=== PATIENT | male | born 1950 | race Caucasian/White ===

== ENCOUNTER 2017-06-13 10:10 | Emergency (ER) | payer OTHER ==
[2017-06-13 10:26] VITALS: BP 124/76; PULSE 85; TEMP 98.4; BMI 28.1
[2017-06-13] MEDS ORDERED: DIPHTH,PERTUSS(ACELL),TET 0.5 ML DISP.SYRIN IM ONE (11:23)
--- NOTE | 2017-06-13 11:34 | PDOC ---
History of Present Illness - General Chief Complaint: Pain Stated Complaint: LT FINGER INFECTION Time Seen by Provider: 06/13/17 11:19 History Source: Patient - History of Present Illness Timing/Duration: other Severity: moderate Associated Symptoms: denies: fever/chills Past History - Past Medical History Allergies/Adverse Reactions: Allergies Allergy/AdvReac Type Severity Reaction Status Date / Time No Known Allergies Allergy Verified 06/13/17 10:24 Home Medications: Ambulatory Orders Aspirin [ASA -] 81 mg PO DAILY 06/15/13 Enalapril Maleate [Vasotec -] 2.5 mg PO DAILY 06/15/13 Omeprazole Magnesium [Prilosec (OTC)] 20 mg PO DAILY 06/15/13 Rosuvastatin Calcium [Crestor] 10 mg PO HS 06/15/13 Tamsulosin HCl [Flomax] 0.4 mg PO DAILY 06/15/13 Oseltamivir Phosphate [Tamiflu -] 75 mg PO BID #10 capsule 08/11/13 Cephalexin [Keflex] 500 mg PO Q6H #28 capsule 06/13/17 Diabetes: Yes (PRE DIABETIC-DIET CONTROLLED) GI Disorders: Yes (GERD) Hypercholesterolemia: Yes - Immunization History Immunization Up to Date: Yes - Suicide/Smoking/Psychosocial Hx Smoking Status: Yes Smoking History: Former smoker Years of Tobacco Use: 35 Have you smoked in the past 12 months: No Number of Cigarettes Smoked Daily: 20 If you are a former smoker, when did you quit?: 2011 Cigars Per Day: 0 Information on smoking cessation initiated: No Hx Alcohol Use: No Drug/Substance Use Hx: No Substance Use Type: None Review of Systems - Review of Systems Constitutional: No: Chills, Fever *Physical Exam - Vital Signs Last Vital Signs Temp Pulse Resp BP Pulse Ox 98.4 F 85 18 124/76 98 06/13/17 10:24 06/13/17 10:24 06/13/17 10:24 06/13/17 10:24 06/13/17 10:24 - Physical Exam General Appearance: Yes: Appropriately Dressed. No: Apparent Distress HEENT: positive: Normal Voice Neck: positive: Supple Respiratory/Chest: negative: Respiratory Distress Extremity: positive: Other (paronychia to L 3rd digit) Integumentary: positive: Dry, Warm Neurologic: positive: Fully Oriented, Alert, Normal Mood/Affect Procedures - Incision and Drainage I&D Site: Left: Paronychia (L midle fimger paronychia) Anesthesia: 1% Lidocaine Volume(ml): 7 Attempts: 1 (w/ copious purulent discharge) Iodinated Packin/4 in Complications: none Dressing: Yes (bacitracin, xeroform, 2x2 and soft form) Medical Decision Making - Medical Decision Making 06/13/17 11:26 67-year-old male, prediabetic, not on meds, here with pain, swelling and redness to left middle finger 6 days. States he used a needle to puncture site yesterday and was able to express some pus. Works as an automobile accessories installer. Denies any trauma. No fever or chills See exam Paronychia -tetanus -I&D -dc w/ abx -wound check in 2 days *DC/Admit/Observation/Transfer Diagnosis at time of Disposition: Paronychia - Discharge Dispostion Disposition: HOME Condition at time of disposition: Good - Prescriptions Prescriptions: Cephalexin [Keflex] 500 mg PO Q6H #28 capsule - Patient Instructions Printed Discharge Instructions: Paronychia Additional Instructions: Keep wound dry for the next 2 days. Take antibiotics as prescribed. Returning to ED in 2 days for wound check
== END 2017-06-13 11:49 | disposition home or self-care (01) ==
LOC: JERFT 10:10 → SUPCPDRO 10:10 → JERFT 11:49
PROC: 0H9GXZZ Drainage of Left Hand Skin, External Approach (ICD-10-PCS; principal; 2017-06-13)
PROC: 3E0234Z Introduction of Serum, Toxoid and Vaccine into Muscle, Percutaneous Approach (ICD-10-PCS; 2017-06-13)
DX: L03.012 Cellulitis of left finger (principal); R73.03 Prediabetes; K21.9 Gastro-esophageal reflux disease without esophagitis; E78.00 Pure hypercholesterolemia, unspecified; Z87.891 Personal history of nicotine dependence
CPT/HCPCS: 26010; 90471; 90715; 99281-25

== ENCOUNTER 2017-06-15 09:03 | Emergency (ER) | payer OTHER ==
[2017-06-15 09:15] VITALS: BP 132/77; PULSE 64; TEMP 98.1; BMI 28.4
--- NOTE | 2017-06-15 09:59 | PDOC ---
Suture Removal/Wound Check HPI - History of Present Illness Chief Complaint: Revisit,Wound Recheck Stated Complaint: WOUND CHECK Time Seen by Provider: 06/15/17 09:44 History Source: Yes: Patient Exam Limitations: Yes: No Limitations Treated at: [facility] Date of Last ED visit: 06/13/17 - Previous ED Treatment Type of procedure performed on last visit: Yes: I&D of Abscess Tetanus Immunization: Yes: Up to Date Past History - Past Medical History Allergies/Adverse Reactions: Allergies Allergy/AdvReac Type Severity Reaction Status Date / Time No Known Allergies Allergy Verified 06/15/17 09:12 Home Medications: Ambulatory Orders Aspirin [ASA -] 81 mg PO DAILY 06/15/13 Enalapril Maleate [Vasotec -] 2.5 mg PO DAILY 06/15/13 Omeprazole Magnesium [Prilosec (OTC)] 20 mg PO DAILY 06/15/13 Rosuvastatin Calcium [Crestor] 10 mg PO HS 06/15/13 Tamsulosin HCl [Flomax] 0.4 mg PO DAILY 06/15/13 Oseltamivir Phosphate [Tamiflu -] 75 mg PO BID #10 capsule 08/11/13 Cephalexin [Keflex] 500 mg PO Q6H #28 capsule 06/13/17 Diabetes: Yes (PRE DIABETIC-DIET CONTROLLED) GI Disorders: Yes (GERD) Hypercholesterolemia: Yes - Immunization History Immunization Up to Date: Yes - Suicide/Smoking/Psychosocial Hx Smoking Status: Yes Smoking History: Former smoker Years of Tobacco Use: 35 Have you smoked in the past 12 months: No Number of Cigarettes Smoked Daily: 20 If you are a former smoker, when did you quit?: 2011 Cigars Per Day: 0 Information on smoking cessation initiated: No Hx Alcohol Use: No Drug/Substance Use Hx: No Substance Use Type: None Suture Removal/Wound Check PE - Physical Exam Laceration/Wound Check Symptoms: reports: None Comments: 06/15/17 09:58 left middle digit with paronychia that was drained and packed 2 days ago is without swelling or redness, no drainage Procedures - Additional Procedures Progress: 06/15/17 09:59 packing removed, wound redressed no redness no drainage no swelling Medical Decision Making - Medical Decision Making 06/15/17 09:57 cc: paronychia left middle finger drained 2 days ago packing placed, here for pack removal and wound check pt states less pain as before, is taking antibiotics as directed wound redressed no redness no drainage, packing removed nv intact well healed *DC/Admit/Observation/Transfer Diagnosis at time of Disposition: Wound check, abscess - Discharge Dispostion Disposition: HOME Condition at time of disposition: Improved - Patient Instructions Additional Instructions: continue to keep the area covered while at work and cover when sleeping let the area dry out during the day or when you are not at work wash hands with antibacterial soap and water frequently return if any concerns continue the antibiotics
== END 2017-06-15 10:28 | disposition home or self-care (01) ==
LOC: JERFT 09:03
DX: Z48.01 Encounter for change or removal of surgical wound dressing (principal)
CPT/HCPCS: 99281-25

== ENCOUNTER 2022-04-11 09:54 | Emergency (ER) | payer OTHER ==
[2022-04-11 10:33] VITALS: BP 124/75; PULSE 51; RESP 18; TEMP 97.9; BMI 23.6
[2022-04-11 11:33] LABS: HEMATOCRIT 40.7 % (35.4-49); HEMOGLOBIN 13.9 G/dL (11.7-16.9); MCH 28.4 pg (25.7-33.7); MCHC 34.1 g/dl (32.0-35.9); MEAN CELL VOLUME 83.4 fl (80-96); MEAN PLT VOLUME 8.8 fl (7.5-11.1); PLATELET COUNT 179.6 10^3/uL (134-434); RBC 4.88 10^6/uL (4.00-5.60); RDW 16.2 % (11.9-15.9)
[2022-04-11 11:45] LABS: ALBUMIN 3.9 g/dl (3.4-5.0); BILIRUBIN,TOTAL 0.6 mg/dl (0.2-1); CALCIUM 9.1 mg/dl (8.5-10); CREATININE 0.6 mg/dl (0.55-1.3); TOT PROT 6.6 g/dl (6.4-8.2)
== END 2022-04-11 12:28 | disposition home or self-care (01) ==
LOC: FER 09:54
DX: B34.9 Viral infection, unspecified (principal)
CPT/HCPCS: 36415; 80053; 84484; 85027; 93005; 99284-25; C9803-CS; U0003; U0005

== ENCOUNTER 2022-07-22 18:45 | Emergency (ER) | payer OTHER ==
[2022-07-22 19:02] VITALS: BP 122/84; PULSE 70; RESP 16; TEMP 97.8; BMI 24.3
== END 2022-07-22 20:32 | disposition home or self-care (01) ==
LOC: FER 18:45
DX: R05.1 Acute cough (principal)
CPT/HCPCS: 0241U-QW; 99283-25

== ENCOUNTER 2023-10-29 19:30 | Observation (INO) | payer OTHER ==
[2023-10-29 19:41] VITALS: BMI 24.5
[2023-10-29 20:44] LABS: BASO % 0.6 % (0-2.0); EOS % 2.9 % (0-4.5); HEMOGLOBIN 14.8 GM/dL (11.7-16.9); LYMPH % 17.5 % (8-40); MCH 27.6 pg (25.7-33.7); MCHC 33.7 g/dl (32.0-35.9); MEAN CELL VOLUME 81.9 fl (80-96); MEAN PLT VOLUME 8.9 fl (7.5-11.1); MONO % 6.1 % (3.8-10.2); NEUT % 72.9 % (42.8-82.8); PLATELET COUNT 254 10^3/uL (134-434); RBC 5.37 M/mm3 (4.00-5.60); RDW 15.2 % (11.9-15.9); WHITE BLOOD COUNT 10.9 K/mm3 (4.0-10.0)
[2023-10-29 20:52] LABS: INR 1.24 (0.83-1.09); PROTHROMBIN TIME (PATIENT) 14.3 SEC (9.7-13.0)
[2023-10-29 20:55] LABS: ACTIVATED PTT 35.6 SECONDS (25.2-36.5)
[2023-10-29 21:02] LABS: POTASSIUM 4.1 mmol/L (3.5-5.1)
[2023-10-29 21:05] LABS: ALBUMIN 3.4 g/dl (3.4-5.0); CALCIUM 8.7 mg/dL (8.5-10.1)
[2023-10-29 21:08] LABS: CREATININE 0.7 mg/dL (0.55-1.3)
[2023-10-29 21:11] LABS: BILIRUBIN,TOTAL 0.5 mg/dL (0.2-1)
[2023-10-29 22:19] LABS: URINE APPEARANCE CLEAR; URINE BILIRUBIN NEGATIVE (NEGATIVE); URINE COLOR YELLOW; URINE GLUCOSE (UA) NEGATIVE (NEGATIVE); URINE KETONE 1+ (NEGATIVE); URINE LEUK ESTERASE NEGATIVE (NEGATIVE); URINE NITRITE NEGATIVE (NEGATIVE); URINE PROTEIN NEGATIVE (NEGATIVE); URINE UROBILINOGEN 0.2 mg/dL (0.2-1.0)
[2023-10-29] MEDS: SODIUM CHLORIDE 0.9% 500 ML INFUS.BAG IV ONE (22:38)
[2023-10-30 09:14] LABS: HEMATOCRIT 39.4 % (35.4-49); HEMOGLOBIN 13.5 GM/dL (11.7-16.9); MCH 27.8 pg (25.7-33.7); MCHC 34.3 g/dl (32.0-35.9); MEAN CELL VOLUME 81.1 fl (80-96); MEAN PLT VOLUME 9.2 fl (7.5-11.1); PLATELET COUNT 255 10^3/uL (134-434); RBC 4.86 M/mm3 (4.00-5.60); RDW 14.8 % (11.9-15.9); WHITE BLOOD COUNT 11.4 K/mm3 (4.0-10.0)
[2023-10-30 09:21] LABS: POTASSIUM 4.1 mmol/L (3.5-5.1)
[2023-10-30 09:28] LABS: PHOSPHOROUS 3.3 mg/dL (2.5-4.9)
[2023-10-30 09:29] LABS: BILIRUBIN,TOTAL 0.6 mg/dL (0.2-1)
[2023-10-30 09:30] LABS: ALBUMIN 3.3 g/dl (3.4-5.0); CALCIUM 8.9 mg/dL (8.5-10.1)
[2023-10-30 09:31] LABS: MAGNESIUM 2.3 mg/dL (1.8-2.4); TOT PROT 6.7 g/dl (6.4-8.2)
[2023-10-30 09:32] LABS: CREATININE 0.6 mg/dL (0.55-1.3)
[2023-10-30] MEDS: DONEPEZIL HCL 10 MG TABLET (FP) PO SCH (09:41)
[2023-10-30] MEDS: TAMSULOSIN HCL 0.4 MG CAP PO SCH (09:41)
[2023-10-30] MEDS: MEMANTINE HCL 10 MG TABLET (FP) PO SCH (09:41)
[2023-10-30] MEDS ORDERED: ENOXAPARIN NA (PORCINE) 40 MG/0.4 ML DISP.SYRIN SQ SCH (10:00)
[2023-10-30 11:19] VITALS: RESP 18
[2023-10-30] MEDS: ROSUVASTATIN CA 10 MG TABLET PO SCH (21:28)
[2023-10-30] MEDS ORDERED: PATIENT'S OWN MEDICATION (NON-FORMULARY) (Rivastigmine 1 EACH Patch.Td24) TD SCH (23:45)
[2023-10-31 06:44] LABS: INR 1.26 (0.83-1.09); PROTHROMBIN TIME (PATIENT) 14.6 SEC (9.7-13.0)
[2023-10-31 06:46] LABS: ACTIVATED PTT 37.5 SECONDS (25.2-36.5); BASO % 0.7 % (0-2.0); EOS % 2.8 % (0-4.5); HEMATOCRIT 40.3 % (35.4-49); HEMOGLOBIN 13.5 GM/dL (11.7-16.9); LYMPH % 17.4 % (8-40); MCH 27.5 pg (25.7-33.7); MCHC 33.5 g/dl (32.0-35.9); MEAN CELL VOLUME 81.9 fl (80-96); MONO % 6.7 % (3.8-10.2); NEUT % 72.4 % (42.8-82.8); PLATELET COUNT 257 10^3/uL (134-434); RBC 4.92 M/mm3 (4.00-5.60); RDW 14.2 % (11.9-15.9); WHITE BLOOD COUNT 10.9 K/mm3 (4.0-10.0)
[2023-10-31 06:52] LABS: POTASSIUM 4.3 mmol/L (3.5-5.1)
[2023-10-31 06:54] LABS: CALCIUM 8.6 mg/dL (8.5-10.1)
[2023-10-31 06:55] LABS: ALBUMIN 3.3 g/dl (3.4-5.0); MAGNESIUM 2.2 mg/dL (1.8-2.4)
[2023-10-31 06:57] LABS: PHOSPHOROUS 3.4 mg/dL (2.5-4.9)
[2023-10-31 06:58] LABS: CREATININE 0.7 mg/dL (0.55-1.3)
[2023-10-31 06:59] LABS: BILIRUBIN,TOTAL 0.6 mg/dL (0.2-1); TOT PROT 6.7 g/dl (6.4-8.2)
[2023-10-31] MEDS: ENOXAPARIN NA (PORCINE) 40 MG/0.4 ML DISP.SYRIN SQ SCH (09:38)
[2023-10-31] MEDS ORDERED: LACTATED RINGERS SOLUTION 1,000 ML/1,000 ML INFUS.BAG IV SCH (10:30)
[2023-10-31 10:33] VITALS: BP 135/81; PULSE 61; TEMP 98.4
[2023-10-31] MEDS: LACTATED RINGERS SOLUTION 1,000 ML/1,000 ML INFUS.BAG IV SCH (11:27)
== END 2023-10-31 13:30 | disposition home or self-care (01) ==
LOC: JER 19:30 → JERBED 22:03 → J4W 10-30 01:39
PROVIDERS: ADMIT Internal Medicine; ATTEND Internal Medicine
PROC: 3E023GC Introduction of Other Therapeutic Substance into Muscle, Percutaneous Approach (ICD-10-PCS; principal; 2023-10-29)
PROC: 3E0337Z Introduction of Electrolytic and Water Balance Substance into Peripheral Vein, Percutaneous Approach (ICD-10-PCS; 2023-10-29)
DX: E86.0 Dehydration (principal); E03.9 Hypothyroidism, unspecified; I95.9 Hypotension, unspecified; F03.90 Unspecified dementia, unspecified severity, without behavioral disturbance, psychotic disturbance, mood disturbance, and anxiety
CPT/HCPCS: 0241U-QW; 36415; 70450-TC; 70551-TC; 71045-TC-FY; 80053; 80061; 81003; 82550; 83735; 84100; 84484; 85025; 85027; 85610; 85730; 93005; 93010; 93306-TC; 95816; 96360; 96372; 97116-GP; 97161-GP; 99285-25; G0378